=== PATIENT | male | born 1970 | race Caucasian/White ===

== ENCOUNTER 2017-02-22 08:02 | Outpatient (CLI) ==
[2016-12-02 03:21] VITALS: BMI 40.1
--- NOTE | 2017-02-22 12:48 | MRI ---
EXAM: MRI of the left knee without contrast COMPARISON: None available. HISTORY: Left knee pain. Osteoarthrosis. TECHNIQUE: Multiplanar noncontrast MR images of the left knee were acquired using a 1.2 Tia magnet . FINDINGS: There is diminished size medial meniscus with blunting of the free edge of the body throug h the posterior horn/root consistent with a complex tear with degenerative component. There is a hor izontal/oblique component involving the free edge and superior articular surface extending peripheral ly at the body/posterior horn junction. A radial component involves the free edge extends peripheral ly at the posterior horn/root as well. Extrusion of the body related to loss hoop containment. Intrasubstance degeneration of the lateral meniscus. Mild blunting irregularity the free edge at the body through the posterior horn/root consistent with a degenerative type tear with horizontal cleava ge/oblique component involving the inferior articular surface extending peripherally at the posterior horn and root with small peripheral undersurface flap. Intact anterior and posterior cruciate ligament fibers are identified. Scarring related to a chronic sprain of the medial collateral ligament. The lateral collateral ligament complex and posterolatera l corner ligaments are intact. Moderate distal quadriceps tendinosis with a small superior patellar spur. Mild patellar tendinosis. Minimal lateral subluxation of the patella. Subcutaneous edema ant eriorly and medially with a sprain of the medial patellar retinaculum complex. Marginal osteophytes in all three components of the knee. Moderate to marked thinning of the cartila ge along the central posterior weightbearing surface of the medial femoral condyle and medial tibial plateau. Thinning of the cartilage lateral compartment with full-thickness defects along the central /posterior portion of the lateral tibial plateau and opposing articular surface of the lateral femora l condyle. Marked thinning of the cartilage along the lateral facet median ridge of the patella. No evidence of an acute fracture or osteomyelitis. Moderate joint effusion with mild synovial thickeni ng, nonspecific. Small filling defects within the joint measuring up to 4 mm in size anteriorly sugg esting loose bodies. Slit-like popliteal cyst. No osteochondral body identified. IMPRESSION: 1. Complex tear with degenerative component and flap formation involving the medial meniscus. 2. Complex tear with degenerative component and flap formation involving the lateral meniscus. 3. Advanced tricompartmental osteoarthrosis as described. 4. Moderate joint effusion with synovitis, nonspecific. Consider aspiration if clinically warranted . Small loose bodies. Slit-like popliteal cyst. 5. Chronic sprain with scarring of the medial collateral ligament. 6. Patellar/quadriceps tendinosis and enthesopathy. Mild lateral subluxation of the patella. Sprai n of the medial patellar retinaculum complex.
== END 2017-02-22 08:03 | disposition home or self-care (01) ==
LOC: RAD 08:02
PROVIDERS: ATTEND Orthopaedic Surgery
DX: M17.12 Unilateral primary osteoarthritis, left knee (principal); M25.562 Pain in left knee; S83.242D Other tear of medial meniscus, current injury, left knee, subsequent encounter

== ENCOUNTER → 2017-02-23 | Outpatient (POV) ==
[2016-12-02 03:21] VITALS: BMI 40.1
== END ==
LOC: OUTPT 00:01
PROVIDERS: ATTEND Otolaryngology
DX: H69.90 Unspecified Eustachian tube disorder, unspecified ear (principal)